=== PATIENT | male | born 1990 | race Hispanic/Latino ===

== ENCOUNTER 2022-08-22 13:26 | Emergency (ER) | payer SELFPAY ==
[~2022-08-22] VITALS: Ht 160 cm; Wt 61.0 kg
[2022-08-22 15:46] LABS: BASO% 0.3 % (0-3); EOS% 0.3 % (0-8); HEMATOCRIT 45.3 % (39.0-50.0); HEMOGLOBIN 15.3 g/dl (14.0-18.0); IMMATURE GRANULOCYTES 0.5 % (0.0-5.0); MEAN CELL VOLUME 94.2 fL CALC (80.0-100.0); MEAN CORPUSCULAR HGB 31.8 pG CALC (26.0-32.0); MEAN CORPUSCULAR HGB CONC 33.8 g/dL CAL (32.0-36.0); MONO% 10.4 % (2-13); NEUT# 8.97 thou/uL (1.82-7.42); NEUT% 77.5 % (42-76); RED BLOOD COUNT 4.81 mill/uL (4.70-6.10); RED CELL DISTRI WIDTH 12.4 % (11.5-15.5)
[2022-08-22 16:07] LABS: ANION GAP 15 (6-22 (CALC)); BUN 17 mg/dL (9-20); BUN/CREATININE RATIO 28 (12-20 (CALC)); CARBON DIOXIDE 26 mmol/l (22-30); CHLORIDE 99 mmol/l (95-108); CREATININE 0.6 mg/dL (0.7-1.3); GFR FOR AFR.AMER. > 60 ML/MIN (>=60 (CALC)); GFR OTHER RACES > 60 ML/MIN (>=60 (CALC)); POTASSIUM 3.8 mmol/l (3.5-5.1); SODIUM 137 mmol/l (137-146)
[2022-08-22] MEDS ORDERED: CLINDAMYCIN300 M1 PO (18:25)
[2022-08-22 18:30] VITALS: BP 148/98
== END 2022-08-22 18:40 | disposition home or self-care (01) | DRG 159 ==
LOC: ED 13:26
PROVIDERS: Nurse Practitioner Family
DX: K05.219 Aggressive periodontitis, localized, unspecified severity (principal)
CPT/HCPCS: Q9967